=== PATIENT | male | born 1950 | race African-American/Black ===

== ENCOUNTER 2018-06-20 07:11 | Day surgery (SDC) | payer MEDICARE ==
[~2018-06-20] VITALS: Ht 180.3 cm; Wt 88.9 kg
[~2018-06-20 07:11] MED LIST: ALLERGY RELF10 M3 PO; ASPIRIN81 MG PO; ATORVASTATIN CA10 MG PO; BABY ASPIRIN81 MG PO; BAYER ASPIRIN325 MG PO; BENADRYL 50MG C50 MG PO; BETAMETHASONE0.051 EX; BL ASPIRIN325 MG PO; CIPRO XR500 MG PO; ENALAPRIL10 MG PO; ENALAPRIL20 MG PO; ENBREL50 MG/ML SC; FLAGYL500 MG PO; FLEXERIL OR; FOLIC ACID1 MG PO; HUMIRA PED40 MG/0.8; HUMIRA PEN40 MG/0.8 IM; ISOSORB MONO30 MG PO; KENALOG-4040 MG/ML IA; LAMIVUDINE100 MG PO; LATANOPROST0.005 % OU; LORTAB 7.5 PO; LOVAZA1 GM PO; MAGNESIUM OXID250 MG PO; MAGNESIUM OXID400 M2 PO; MAGNESIUM-OX400 MG PO; METOPROL TAR25 MG PO; MILK THISTL2 PO; NAPROSYN500 MG OR; NITROSTAT0.4 MG SL; OMEGA 31000 MG PO; OMEPRAZOLE20 M2 PO; OMEPRAZOLE20 MG PO; OMEPRAZOLE20.6 MGDR PO; PLAVIX75 MG PO; PROTOPIC0.1 % EX; TEMOVATE0.053 EX; TORADOL PO; TRIAMCINOLON0.11 EX; VITAMIN B SHOT; VITAMIN D32000 UNIT PO; WELCHOL625 MG PO; ZETIA10 MG PO; no home meds
[2018-06-20 09:34] VITALS: BP 147/84
== END 2018-06-20 09:25 | disposition home or self-care (01) ==
LOC: ENDO 07:11
PROVIDERS: ATTEND Surgery
PROC: 0DBN8ZX Excision of Sigmoid Colon, Via Natural or Artificial Opening Endoscopic, Diagnostic (ICD-10-PCS; principal; 2018-06-20)
DX: Z12.11 Encounter for screening for malignant neoplasm of colon (principal); K63.89 Other specified diseases of intestine; K57.30 Diverticulosis of large intestine without perforation or abscess without bleeding; I10 Essential (primary) hypertension; E78.5 Hyperlipidemia, unspecified; I25.10 Atherosclerotic heart disease of native coronary artery without angina pectoris

== ENCOUNTER 2018-07-05 11:12 | Emergency (ER) | payer MEDICARE ==
[~2018-07-05] VITALS: Ht 180.3 cm; Wt 90.0 kg
[2018-07-05 12:22] LABS: URINE BILIRUBIN - DIPSTICK NEGATIVE (NEGATIVE); URINE BLOOD DIPSTICK LARGE (NEGATIVE); URINE GLUCOSE - DIPSTICK NEGATIVE (NEGATIVE); URINE KETONE NEGATIVE (NEGATIVE); URINE LEUK ESTERASE NEGATIVE (NEGATIVE); URINE NITRITE - DIPSTICK NEGATIVE (Negative); URINE PROTEIN - DIPSTICK >=300 mg/dL (NEG-TRACE); URINE SPECIFIC GRAVITY 1.025
[2018-07-05 12:25] LABS: URINE CLARITY CLOUDY; URINE COLOR BLOODY; URINE RBC TNTC RBC/hpf (0-5); URINE SQUAMOUS EPITHELIAL CELL FEW EPI/hpf (0-FEW)
[2018-07-05 13:15] LABS: HEMATOCRIT 46.7 % (39.0-50.0); HEMOGLOBIN 15.8 g/dl (14.0-18.0); IMMATURE GRANULOCYTES 0.6 % (0.0-5.0); MEAN CELL VOLUME 99.8 fL CALC (80.0-100.0); MEAN CORPUSCULAR HGB 33.8 pG CALC (26.0-32.0); MEAN CORPUSCULAR HGB CONC 33.8 g/L CALC (32.0-36.0); NEUT# 1.55 thou/uL (1.82-7.42); RED BLOOD COUNT 4.68 mill/uL (4.70-6.10)
[2018-07-05 13:53] LABS: PROTHROMBIN TIME 10.9 SECONDS (9.0-12.5)
[2018-07-05 13:54] LABS: ANION GAP 9 (6-22 (CALC)); BUN 8 mg/dL (8-23); BUN/CREATININE RATIO 8 (12-20 (CALC)); CARBON DIOXIDE 30 mmol/l (22-30); CHLORIDE 108 mmol/l (95-108); GFR > 60 ML/MIN (>=60 (CALC)); GFR FOR AFR.AMER. > 60 ML/MIN (>=60 (CALC)); POTASSIUM 3.9 mmol/l (3.5-5.1); SODIUM 143 mmol/l (137-146)
[2018-07-05 15:35] VITALS: BP 155/88
== END 2018-07-05 15:35 | disposition short-term general hospital (02) ==
LOC: ED 11:12
PROVIDERS: Family Medicine
DX: R31.9 Hematuria, unspecified (principal); K63.0 Abscess of intestine; N20.0 Calculus of kidney; B19.10 Unspecified viral hepatitis B without hepatic coma; I10 Essential (primary) hypertension

== ENCOUNTER 2018-07-18 19:17 | Emergency (ER) | payer MEDICARE ==
[~2018-07-18] VITALS: Ht 180.3 cm; Wt 95.4 kg
[2018-07-18 20:18] VITALS: BP 151/86
== END 2018-07-18 20:18 | disposition home or self-care (01) ==
LOC: ED 19:17
DX: T82.594A Other mechanical complication of infusion catheter, initial encounter (principal); I10 Essential (primary) hypertension; H35.30 Unspecified macular degeneration; B19.10 Unspecified viral hepatitis B without hepatic coma; K74.60 Unspecified cirrhosis of liver; Y83.8 Other surgical procedures as the cause of abnormal reaction of the patient, or of later complication, without mention of misadventure at the time of the procedure

== ENCOUNTER → 2018-10-04 | Outpatient (REF) | payer MEDICARE ==
[~2018-10-04] VITALS: Ht 180.3 cm; Wt 95.7 kg
[~2018-10-04] MED LIST changes: +PERCOCET1 TA4 PO
[2018-10-04 09:49] VITALS: BP 141/88
== END | disposition home or self-care (01) ==
LOC: PO 08:36 → ORM 09:15
PROVIDERS: ATTEND Urology
DX: N31.2 Flaccid neuropathic bladder, not elsewhere classified (principal); I25.2 Old myocardial infarction; Z86.19 Personal history of other infectious and parasitic diseases; K21.9 Gastro-esophageal reflux disease without esophagitis; I10 Essential (primary) hypertension; Z90.49 Acquired absence of other specified parts of digestive tract; Z95.818 Presence of other cardiac implants and grafts; Z98.890 Other specified postprocedural states; Z97.2 Presence of dental prosthetic device (complete) (partial); R31.9 Hematuria, unspecified

== ENCOUNTER 2018-10-12 10:15 | Day surgery (SDC) | payer MEDICARE ==
[~2018-10-12 10:15] MED LIST changes: -PERCOCET1 TA4 PO
[2018-10-12] MEDS ORDERED: PERCOCET1 TA4 PO (13:16)
[2018-10-12 13:57] VITALS: BP 165/78
== END 2018-10-12 13:54 | disposition home health service (06) ==
LOC: ORM 10:15
PROVIDERS: ATTEND Urology
PROC: 0TBB8ZX Excision of Bladder, Via Natural or Artificial Opening Endoscopic, Diagnostic (ICD-10-PCS; principal; 2018-10-12)
DX: C67.4 Malignant neoplasm of posterior wall of bladder (principal); I10 Essential (primary) hypertension; B19.10 Unspecified viral hepatitis B without hepatic coma; K74.60 Unspecified cirrhosis of liver; N20.0 Calculus of kidney; D69.6 Thrombocytopenia, unspecified; Z79.82 Long term (current) use of aspirin

== ENCOUNTER 2019-04-11 08:34 | Day surgery (SDC) | payer MEDICARE ==
[~2019-04-11] VITALS: Ht 180.3 cm; Wt 96.2 kg
[~2019-04-11 08:34] MED LIST changes: +CYANOCOBAL1000 MCG/M IM; +PERCOCET1 TA4 PO; +TRAMADOL HCL50 MG PO; +TRIAMCINOLON0.13 EX
[2019-04-11 11:00] VITALS: BP 173/96
== END 2019-04-11 11:15 | disposition home or self-care (01) ==
LOC: ENDO 08:34 → ORM 09:45 → ENDO 09:45
PROVIDERS: ATTEND Surgery
PROC: 0DBN8ZX Excision of Sigmoid Colon, Via Natural or Artificial Opening Endoscopic, Diagnostic (ICD-10-PCS; principal; 2019-04-11)
DX: Z12.11 Encounter for screening for malignant neoplasm of colon (principal); K57.30 Diverticulosis of large intestine without perforation or abscess without bleeding; K63.89 Other specified diseases of intestine; C67.9 Malignant neoplasm of bladder, unspecified; I10 Essential (primary) hypertension; I25.10 Atherosclerotic heart disease of native coronary artery without angina pectoris; Z86.010 Personal history of colon polyps

== ENCOUNTER 2019-08-02 | Emergency (ER) | payer MEDICARE ==
[2019-08-02 18:15] LABS: HEMATOCRIT 48.6 % (39.0-50.0); HEMOGLOBIN 16.1 g/dl (14.0-18.0); IMMATURE GRANULOCYTES 0.5 % (0.0-5.0); MEAN CELL VOLUME 99.4 fL CALC (80.0-100.0); MEAN CORPUSCULAR HGB 32.9 pG CALC (26.0-32.0); MEAN CORPUSCULAR HGB CONC 33.1 g/L CALC (32.0-36.0); NEUT# 5.41 thou/uL (1.82-7.42); RED BLOOD COUNT 4.89 mill/uL (4.70-6.10)
[2019-08-02 18:26] LABS: ALBUMIN 4.6 g/dL (3.2-5.0); CREATININE 1.6 mg/dL (0.7-1.3); POTASSIUM 4.1 mmol/l (3.5-5.1); TOTAL PROTEIN 9.6 g/dL (6.3-8.2)
[2019-08-02 20:24] LABS: URINE BLOOD DIPSTICK LARGE (NEGATIVE); URINE COLOR YELLOW; URINE GLUCOSE - DIPSTICK NEGATIVE (NEGATIVE); URINE KETONE TRACE mg/dL (NEGATIVE); URINE LEUK ESTERASE NEGATIVE (Negative); URINE NITRITE - DIPSTICK NEGATIVE (Negative); URINE PH 5.5 (4.5-8.0); URINE PROTEIN - DIPSTICK 100 mg/dL (NEG-TRACE); URINE SPECIFIC GRAVITY >=1.030; URINE UROBILINOGEN - DIPSTICK 0.2 E.U./dL (0.2)
[2019-08-02 20:30] LABS: URINE BILIRUBIN - DIPSTICK NEGATIVE (NEGATIVE); URINE CLARITY HAZY
[2019-08-02 20:39] LABS: URINE AMORPH SEDIMENT FEW hpf (NONE-FER); URINE WBC 0-2 WBC/hpf (0-5)
[2019-08-02] MEDS ORDERED: TAM75CAP PO (20:48)
== END 2019-08-02 21:45 | disposition home or self-care (01) ==
DX: J10.1 Influenza due to other identified influenza virus with other respiratory manifestations (principal); I10 Essential (primary) hypertension; I25.10 Atherosclerotic heart disease of native coronary artery without angina pectoris
CPT/HCPCS: G9019

== ENCOUNTER 2022-10-31 09:00 | Day surgery (SDC) | payer MEDICARE ==
[~2022-10-31] VITALS: Ht 180.3 cm; Wt 95.3 kg
[~2022-10-31 09:00] MED LIST changes: +HYDROXYZINE HYD25 MG PO; +NORMODYNE/TRAN100 MG PO; +NORVASC5 M1 PO; +TAM75CAP PO
[2022-10-31 14:30] VITALS: BP 150/91
== END 2022-10-31 12:50 | disposition home or self-care (01) ==
LOC: ENDO 09:00 → ORM 09:50 → ENDO 12:50
PROVIDERS: ATTEND Internal Medicine Gastroenterology
PROC: 0DBN8ZX Excision of Sigmoid Colon, Via Natural or Artificial Opening Endoscopic, Diagnostic (ICD-10-PCS; principal; 2022-10-31)
PROC: 0DB78ZX Excision of Stomach, Pylorus, Via Natural or Artificial Opening Endoscopic, Diagnostic (ICD-10-PCS; 2022-10-31)
DX: Z12.11 Encounter for screening for malignant neoplasm of colon (principal); K63.5 Polyp of colon; K64.8 Other hemorrhoids; K74.69 Other cirrhosis of liver; I85.10 Secondary esophageal varices without bleeding; K29.50 Unspecified chronic gastritis without bleeding; Z86.19 Personal history of other infectious and parasitic diseases

== ENCOUNTER 2023-03-14 11:49 | Inpatient (IN) | payer MEDICARE ==
[~2023-03-14] VITALS: Ht 180.3 cm; Wt 92.0 kg
[2023-03-14] VITALS (29 sets, daily range): BP systolic 108–162; BP diastolic 54–119
[2023-03-14 12:34] LABS: BASO% 0.6 % (0-3); EOS% 1.8 % (0-8); HEMATOCRIT 42.8 % (39.0-50.0); HEMOGLOBIN 13.8 g/dl (14.0-18.0); IMMATURE GRANULOCYTES 0.3 % (0.0-5.0); LYMPH% 34.9 % (15-41); MEAN CELL VOLUME 100.5 fL CALC (80.0-100.0); MEAN CORPUSCULAR HGB 32.4 pG CALC (26.0-32.0); MEAN CORPUSCULAR HGB CONC 32.2 g/dL CAL (32.0-36.0); MONO% 12.5 % (2-13); NEUT# 1.63 thou/uL (1.82-7.42); NEUT% 49.9 % (42-76); RED BLOOD COUNT 4.26 mill/uL (4.70-6.10); RED CELL DISTRI WIDTH 13.9 % (11.5-15.5)
[2023-03-14 12:43] LABS: INTERNATIONAL NORMALIZED RATIO 1.1 RATIO (0.7-1.3); PROTHROMBIN TIME 10.7 SECONDS (9.0-12.5)
[2023-03-14 12:45] LABS: ALBUMIN 4.3 g/dL (3.2-5.0); ALKALINE PHOSPHATASE 121 u/l (38-126); ANION GAP 13 (6-22 (CALC)); BILIRUBIN, TOTAL 0.8 mg/dL (0.2-1.3); BUN 9 mg/dL (8-23); BUN/CREATININE RATIO 7 (12-20 (CALC)); CARBON DIOXIDE 23 mmol/l (22-30); CHLORIDE 109 mmol/l (95-108); CREATININE 1.2 mg/dL (0.7-1.3); GFR FOR AFR.AMER. > 60 ML/MIN (>=60 (CALC)); GFR OTHER RACES 59 ML/MIN (>=60 (CALC)); SGOT/AST 57 u/l (19-48); SODIUM 142 mmol/l (137-146); TOTAL PROTEIN 8.8 g/dL (6.3-8.2)
[2023-03-14 12:48] LABS: CALCULATED LDLCHOLESTEROL 60 mg/dL (62-129 (CALC)); CHOLESTEROL HDL RATIO 3.1 (<4.4 (CALC)); HDL CHOLESTEROL 37 mg/dL (39.0-59.0); TOTAL CHOLESTEROL 116 mg/dl (0-199); TOTAL TRIGLYCERIDES 94 mg/dl (0-149); VLDL CHOLESTROL 19 mg/dl (0-38 (CALC))
[2023-03-14 14:20] LABS: URINE BILIRUBIN - DIPSTICK Negative (NEGATIVE); URINE BLOOD DIPSTICK Negative (NEGATIVE); URINE COLOR Yellow; URINE GLUCOSE - DIPSTICK Negative (NEGATIVE); URINE KETONE Negative (NEGATIVE); URINE LEUK ESTERASE Negative (NEGATIVE); URINE NITRITE - DIPSTICK Negative (Negative); URINE PROTEIN - DIPSTICK Negative (NEG-TRACE); URINE UROBILINOGEN - DIPSTICK 0.2 E.U./dL (0.2)
[2023-03-15] VITALS (21 sets, daily range): BP systolic 105–180; BP diastolic 47–81
[2023-03-15 06:12] LABS: HEMATOCRIT 41.5 % (39.0-50.0); HEMOGLOBIN 13.5 g/dl (14.0-18.0); MEAN CELL VOLUME 101.5 fL CALC (80.0-100.0); MEAN CORPUSCULAR HGB CONC 32.5 g/dL CAL (32.0-36.0); RED BLOOD COUNT 4.09 mill/uL (4.70-6.10); RED CELL DISTRI WIDTH 13.5 % (11.5-15.5)
[2023-03-15 06:33] LABS: ANION GAP 11 (6-22 (CALC)); BUN 10 mg/dL (8-23); BUN/CREATININE RATIO 8 (12-20 (CALC)); CALCULATED LDLCHOLESTEROL 57 mg/dL (62-129 (CALC)); CARBON DIOXIDE 24 mmol/l (22-30); CHLORIDE 108 mmol/l (95-108); CHOLESTEROL HDL RATIO 3.5 (<4.4 (CALC)); CREATININE 1.2 mg/dL (0.7-1.3); GFR FOR AFR.AMER. > 60 ML/MIN (>=60 (CALC)); GFR OTHER RACES 59 ML/MIN (>=60 (CALC)); HDL CHOLESTEROL 31 mg/dL (39.0-59.0); POTASSIUM 4.1 mmol/l (3.5-5.1); SODIUM 139 mmol/l (137-146); TOTAL CHOLESTEROL 109 mg/dl (0-199); TOTAL TRIGLYCERIDES 108 mg/dl (0-149); VLDL CHOLESTROL 22 mg/dl (0-38 (CALC))
[2023-03-15] MEDS ORDERED: ENALAPRIL10 MG PO (17:30)
[2023-03-15] MEDS ORDERED: PLAVIX75 MG PO (17:32)
== END 2023-03-15 18:30 | disposition home health service (06) | DRG 69 ==
LOC: ED 11:49 → ED-I 14:39 → ED 14:58 → ICU 14:59
PROVIDERS: Nurse Practitioner; ADMIT Student in an Organized Health Care Education/Training Program; ATTEND Student in an Organized Health Care Education/Training Program
DX: G45.9 Transient cerebral ischemic attack, unspecified (principal); I10 Essential (primary) hypertension; I25.10 Atherosclerotic heart disease of native coronary artery without angina pectoris; E78.00 Pure hypercholesterolemia, unspecified; K74.60 Unspecified cirrhosis of liver; F17.200 Nicotine dependence, unspecified, uncomplicated; G93.89 Other specified disorders of brain
CPT/HCPCS: A9579; Q9967

== ENCOUNTER 2024-04-15 08:43 | Day surgery (SDC) | payer MEDICARE ==
[~2024-04-15] VITALS: Ht 180.3 cm; Wt 94.3 kg
[~2024-04-15 08:43] MED LIST changes: +CLOPIDOGREL75 MG PO; +[UNRECOGNIZED DRUG - OTHER] IM
[2024-04-15] MEDS ORDERED: FAMOTIDINE 10MG/ML 2ML SDV IV ONE (08:59)
[2024-04-15] MEDS ORDERED: LACTATED RINGER'S 0 ML IV ONE (08:59)
[2024-04-15] MEDS ORDERED: LACTATED RINGER'S 1,000 ML IV ONE (10:35)
[2024-04-15 11:46] VITALS: BP 118/81
[2024-04-15] MEDS ORDERED: LIDOCAINE HCL 2% 2ML SDV IV ONE (13:04)
[2024-04-15] MEDS ORDERED: PROPOFOL 500 MG/50 ML VIAL IV ONE (13:04)
== END 2024-04-15 11:15 | disposition home or self-care (01) ==
LOC: ENDO 08:43 → ORM 10:00 → ENDO 10:00 → ORM 10:15 → ENDO 11:15
PROVIDERS: ATTEND Internal Medicine Gastroenterology
PROC: 0DBN8ZX Excision of Sigmoid Colon, Via Natural or Artificial Opening Endoscopic, Diagnostic (ICD-10-PCS; principal; 2024-04-15)
PROC: 0DBL8ZX Excision of Transverse Colon, Via Natural or Artificial Opening Endoscopic, Diagnostic (ICD-10-PCS; 2024-04-15)
DX: Z12.11 Encounter for screening for malignant neoplasm of colon (principal); D12.4 Benign neoplasm of descending colon; K63.5 Polyp of colon; K57.30 Diverticulosis of large intestine without perforation or abscess without bleeding; K64.8 Other hemorrhoids; K74.60 Unspecified cirrhosis of liver; I85.00 Esophageal varices without bleeding; I25.10 Atherosclerotic heart disease of native coronary artery without angina pectoris; Z87.19 Personal history of other diseases of the digestive system

== ENCOUNTER 2024-08-13 10:47 | Emergency (ER) | payer MEDICARE ==
[~2024-08-13] VITALS: Ht 180.3 cm; Wt 95.0 kg
[2024-08-13] MEDS ORDERED: BENZONATATE200 MG PO (12:50)
[2024-08-13] MEDS ORDERED: TAM75CAP PO (12:50)
[2024-08-13 13:24] VITALS: BP 144/82
== END 2024-08-13 13:20 | disposition home or self-care (01) ==
LOC: ED 10:47
DX: J10.1 Influenza due to other identified influenza virus with other respiratory manifestations (principal); I10 Essential (primary) hypertension; E78.5 Hyperlipidemia, unspecified; I25.10 Atherosclerotic heart disease of native coronary artery without angina pectoris; K74.60 Unspecified cirrhosis of liver; Z72.0 Tobacco use; Z20.822 Contact with and (suspected) exposure to COVID-19